=== PATIENT | male | born 1975 | race African-American/Black ===

== ENCOUNTER 2017-07-21 06:13 | Inpatient (IN) | payer OTHER ==
[~2017-07-21] VITALS: Ht 185.4 cm; Wt 86.2 kg
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
[2017-07-21] MEDS ORDERED: ASPIRIN EC 81 MG TABLET.DR PO ONE (06:25)
[2017-07-21] MEDS ORDERED: FURO-144 PO (06:30)
[2017-07-21] MEDS ORDERED: CARV25TA PO (06:30)
[2017-07-21] MEDS ORDERED: ASPI81TA2 PO (06:30)
[2017-07-21] MEDS ORDERED: SPIR25TA4 PO (06:30)
[2017-07-21] MEDS ORDERED: ASPIRIN 81 MG TAB.CHEW PO ONE (06:30)
[2017-07-21 06:38] LABS: BASOPHILS # (AUTO) 0.1 /CMM (0.0-0.2); BASOPHILS % (AUTO) 0.9 % (0.0-2.0); EOSINOPHILS # (AUTO) 0.1 /CMM (0.0-0.7); EOSINOPHILS % (AUTO) 1.4 % (0.0-6.0); HEMATOCRIT 51 % (39-51); LYMPHOCYTES # (AUTO) 1.9 /CMM (0.8-4.8); LYMPHOCYTES % (AUTO) 26.3 % (20.0-44.0); MEAN CORPUSCULAR HEMOGLOBIN 33 PG (26.0-33.0); MEAN CORPUSCULAR HGB CONC 33 g/dl (31.0-36.0); MEAN CORPUSCULAR VOLUME 99 fL (80-96); MONOCYTES # (AUTO) 0.6 /CMM (0.1-1.30); MONOCYTES % (AUTO) 8.5 % (2.0-12.0); NEUTROPHILS # (AUTO) 4.6 /CMM (1.8-8.9); NEUTROPHILS % (AUTO) 62.9 % (43.0-81.0); PLATELET COUNT (AUTO) 176 /CMM (150-450); RDW COEFFICIENT OF VARIATION 15.4 (11.5-15.0); RED BLOOD CELL COUNT(AUTO) 5.21 MIL/uL (4.5-6.0); WHITE BLOOD COUNT (AUTO) 7.3 K/uL (4.3-11.0)
--- NOTE | 2017-07-21 06:40 | NUR ---
RADIOLOGY AT BEDSIDE FOR CXR
[2017-07-21 06:46] LABS: CALCIUM, SERUM 9.2 mg/dL (8.5-10.1); CREATININE 1.2 mg/dL (0.6-1.3); POTASSIUM 3.7 mmol/L (3.5-5.1)
[2017-07-21 06:56] LABS: TROPONIN I 0.042 ng/mL (0.00-0.056)
[2017-07-21 06:59] LABS: INR 1.1 (0.87-1.13); PROTHROMBIN TIME 11.4 SECS (9.5-12.7)
--- NOTE | 2017-07-21 07:05 | NUR ---
PANEL ON-CALL PAGED
--- NOTE | 2017-07-21 07:23 | NUR ---
REPORT GIVEN TO GERARDO BARRERA FOR SAVITA.
--- NOTE | 2017-07-21 08:01 | NUR ---
REPORT GIVEN TO ALVARO CARRILLO FOR TELE ROOM 117.
--- NOTE | 2017-07-21 08:15 | NUR ---
pt admitted from E.R. NO S/S OF DISTRESS BREATHING EVEN AND UNLABORED.ON O2 2L VIA N.C.A/O X3.I.V SITE ON LAC #18 CDI AND PATENT.WILL CONTINUE TO MONITOR FOR CHANGES.SAFETY MEASURES IN PLACE.BED IN LOW AND LOCKED POSITION.ALL NEEDS MET IN A TIMELY MANNER.
[2017-07-21] MEDS ORDERED: MAGNESIUM HYDROXIDE 30 ML UDC PO PRN (08:30)
[2017-07-21] MEDS ORDERED: MAG HYDROX/AL HYDROX/SIMETH 30 ML UDC PO PRN (08:30)
[2017-07-21] MEDS ORDERED: *INSULIN REGULAR(HUMULIN R)HUM 100 UNIT/ML VIAL SQ PRN (08:30)
[2017-07-21] MEDS ORDERED: ZOLPIDEM TARTRATE 5 MG TABLET PO PRN (08:30)
[2017-07-21] MEDS ORDERED: ACETAMINOPHEN 325 MG TABLET PO PRN (08:30)
[2017-07-21] MEDS ORDERED: DEXTROSE 50%-WATER 50 ML DISP.SYRIN IV PRN (08:30)
[2017-07-21] MEDS ORDERED: ONDANSETRON HCL/PF 4 MG/2 ML VIAL IVP PRN (08:30)
[2017-07-21] MEDS ORDERED: HYDROCODONE/APAP 5/325MG 1 EACH TABLET PO PRN (08:30)
[2017-07-21] MEDS ORDERED: Z GUARD REMEDY 2 OZ OINT TP PRN (08:30)
[2017-07-21] MEDS ORDERED: INSULIN REGULAR, HUMAN 100 UNIT/ML 3 ML VIAL SQ PRN (08:30)
[2017-07-21] MEDS ORDERED: ASPIRIN 81 MG TAB.CHEW PO SCH (09:00)
[2017-07-21] MEDS: FUROSEMIDE 40 MG/4 ML VIAL IV SCH ×2 (09:27→21:37)
[2017-07-21] MEDS: ASPIRIN 325 MG TABLET PO SCH (09:27)
[2017-07-21] MEDS: VALSARTAN 80 MG TABLET PO SCH (09:28)
[2017-07-21] MEDS: CARVEDILOL 12.5 MG TABLET PO SCH ×2 (09:28→21:38)
[2017-07-21] MEDS: SPIRONOLACTONE 25 MG TABLET PO SCH ×2 (09:28→16:20)
[2017-07-21] MEDS: ENOXAPARIN SODIUM 40 MG/0.4 ML DISP.SYRIN SQ SCH (09:30)
[2017-07-21] MEDS: hydrALAZINE HCL 50 MG TABLET PO SCH ×3 (09:46→16:19)
[2017-07-21 09:57] LABS: THYROID STIMULATING HORMONE 3.219 uIU/mL (0.358-3.74)
[2017-07-21 10:00] LABS: PHOSPHORUS 4.3 mg/dL (2.5-4.9)
[2017-07-21] MEDS: NITROGLYCERIN PACKET 1 GM PACKET TOP SCH ×3 (11:17→21:38)
[2017-07-21] MEDS: BLOOD SUGAR DIAGNOSTIC 1 EACH STRIP VI SCH ×3 (11:33→21:38)
[2017-07-21 12:00] VITALS: BP 128/78
[2017-07-21 16:00] VITALS: BP 117/80
[2017-07-21] MEDS: ISOSORBIDE DINITRATE (20MG) 20 MG TABLET PO SCH (16:20)
--- NOTE | 2017-07-21 19:10 | NUR ---
RN OPEN NOTES RECEIVED PATIENT AWAKE IN BED. A/O X3. NO SIGNS OF DISTRESS OR DISCOMFORT. BREATHING EVEN AND UNLABORED. ON TELE MONITORING WITH SR 72 NOTED. IV ACCESS IN LAC PATENT AND INTACT, NO SIGNS OF REDNESS OR INFILTRATION. BED IN LOW LOCKED POSITION WITH SIDE RAILS X2. CALL LIGHT WITHIN REACH. WILL CONTINUE TO MONITOR.
[2017-07-21 20:00] VITALS: BP 125/91
--- NOTE | 2017-07-21 23:14 | NUR ---
RN NOTES ADMINISTERED AMBIEN 5MG ORDERED FOR INSOMNIA. WILL CONTINUE TO MONITOR.
[2017-07-22] VITALS: BP 122/79
[2017-07-22] MEDS: NITROGLYCERIN PACKET 1 GM PACKET TOP SCH (06:17)
[2017-07-22] MEDS: BLOOD SUGAR DIAGNOSTIC 1 EACH STRIP VI SCH ×2 (06:24→12:11)
--- NOTE | 2017-07-22 06:46 | NUR ---
RN CLOSING NOTES PATIENT AWAKE IN BED. A/O X3. NO SIGNS OF DISTRESS OR DISCOMFORT. BREATHING EVEN AND UNLABORED. ON TELE MONITORING WITH SR 63 W/ INVERTED QRS NOTED. IV ACCESS IN LAC PATENT AND INTACT, NO SIGNS OF REDNESS OR INFILTRATION. ALL NEEDS MET. NO SIGNIFICANT CHANGES THROUGH THE NIGHT. .BED IN LOW LOCKED POSITION WITH SIDE RAILS X2. CALL LIGHT WITHIN REACH. WILL ENDORSE TO AM SHIFT FOR SAVITA.
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
[2017-07-22 07:57] LABS: BASOPHILS % (AUTO) 0.2 % (0.0-2.0); EOSINOPHILS # (AUTO) 0.1 /CMM (0.0-0.7); EOSINOPHILS % (AUTO) 1.3 % (0.0-6.0); HEMATOCRIT 45 % (39-51); HEMOGLOBIN 14.8 g/dL (13.5-17.5); LYMPHOCYTES # (AUTO) 1.6 /CMM (0.8-4.8); MEAN CORPUSCULAR HEMOGLOBIN 33 PG (26.0-33.0); MEAN CORPUSCULAR HGB CONC 33 g/dl (31.0-36.0); MEAN CORPUSCULAR VOLUME 99 fL (80-96); MONOCYTES # (AUTO) 0.2 /CMM (0.1-1.30); MONOCYTES % (AUTO) 3.6 % (2.0-12.0); NEUTROPHILS # (AUTO) 4.6 /CMM (1.8-8.9); NEUTROPHILS % (AUTO) 69.9 % (43.0-81.0); PLATELET COUNT (AUTO) 159 /CMM (150-450); RDW COEFFICIENT OF VARIATION 15.2 (11.5-15.0); RED BLOOD CELL COUNT(AUTO) 4.54 MIL/uL (4.5-6.0); WHITE BLOOD COUNT (AUTO) 6.6 K/uL (4.3-11.0)
[2017-07-22 08:00] VITALS: BP 142/90
[2017-07-22] MEDS ORDERED: REGADENOSON 0.4 MG/5 ML DISP.SYRIN IVP ONE (08:00)
[2017-07-22 08:18] VITALS: BP 142/90
[2017-07-22 08:29] LABS: ALBUMIN 3.1 g/dL (3.4-5.0); BILIRUBIN,TOTAL 0.5 mg/dL (0.2-1.0); CALCIUM, SERUM 8.4 mg/dL (8.5-10.1); CREATININE 1.1 mg/dL (0.6-1.3); MAGNESIUM 1.8 mg/dL (1.8-2.4); PHOSPHORUS 4.6 mg/dL (2.5-4.9); POTASSIUM 3.4 mmol/L (3.5-5.1); TOTAL PROTEIN, SERUM 6.5 g/dL (6.4-8.2)
[2017-07-22 08:31] LABS: TROPONIN I 0.026 ng/mL (0.00-0.056)
[2017-07-22] MEDS: FUROSEMIDE 40 MG/4 ML VIAL IV SCH (09:43)
[2017-07-22] MEDS: SPIRONOLACTONE 25 MG TABLET PO SCH (09:43)
[2017-07-22] MEDS: hydrALAZINE HCL 50 MG TABLET PO SCH (09:43)
[2017-07-22] MEDS: ISOSORBIDE DINITRATE (20MG) 20 MG TABLET PO SCH (09:44)
[2017-07-22] MEDS: ASPIRIN 325 MG TABLET PO SCH (09:44)
[2017-07-22] MEDS: CARVEDILOL 12.5 MG TABLET PO SCH (09:44)
[2017-07-22] MEDS: VALSARTAN 80 MG TABLET PO SCH (09:44)
[2017-07-22] MEDS: ENOXAPARIN SODIUM 40 MG/0.4 ML DISP.SYRIN SQ SCH (09:45)
[2017-07-22] MEDS ORDERED: POTASSIUM CHLORIDE 20 MEQ TAB.PRT.SR PO SCH ×2 (10:00→11:00)
[2017-07-22] MEDS ORDERED: FUROSEMIDE 40 MG TABLET PO SCH (11:00)
--- NOTE | 2017-07-22 12:00 | NUR ---
RN NOTES PT WANTS TO SEE DR Roberto TERRY REGARDING DISCHARGE HOME , MD NOTIFIED.
[2017-07-22 12:23] VITALS: BP 119/70
[2017-07-22] MEDS ORDERED: hydrALAZINE HCL 50 MG TABLET PO SCH (13:00)
--- NOTE | 2017-07-22 14:44 | NUR ---
Patient lives locally with family. He is ambulatory and independent with adl's. He follow at [facility] for pcp follow up. Plan to return home when discharge. Addendum: 07/22/17 at 1444 by ALEJO MUÑOZ RN Amended: Links added.
[2017-07-22] MEDS ORDERED: HYDR-4077 PO (14:48)
[2017-07-22] MEDS ORDERED: VALS80TA2 PO (14:48)
--- NOTE | 2017-07-22 15:24 | NUR ---
RN NOTES PT STATED WILL MAKE HIS OWN POST ACUTE CARE REGISTERED NURSE DR SHANTI ISSA IN ONE TO TWO WEEKS , AND WITH PCP IN ONE TO TWO WEEKS ALSO , DISCHARGE INSTRUCTION GIVEN , PT VERBALIZES UNDERSTANDING , NO SKIN ISSUE NOTED, H/L DISCONTINUED .
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
--- NOTE | 2017-07-22 15:40 | NUR ---
RN NOTES PT LEFT THE FLOOR TO MAIN ENTRANCE AMBULATORY ACCOMPANIED BY STAFF MEMBERS IN STABLE CONDITION.
== END 2017-07-22 15:37 | disposition home or self-care (01) | DRG 194 ==
LOC: ER 06:17 → TELE1 08:03 → MEDSG1 07-22 10:59
PROVIDERS: ADMIT Internal Medicine; ATTEND Internal Medicine
DX: I11.0 Hypertensive heart disease with heart failure (principal); E11.65 Type 2 diabetes mellitus with hyperglycemia; I24.9 Acute ischemic heart disease, unspecified; I50.23 Acute on chronic systolic (congestive) heart failure; Z79.4 Long term (current) use of insulin; Z79.899 Other long term (current) drug therapy; Z79.82 Long term (current) use of aspirin; F17.200 Nicotine dependence, unspecified, uncomplicated; E66.9 Obesity, unspecified; Z68.25 Body mass index [BMI] 25.0-25.9, adult
CPT/HCPCS: 36415; 71010-TC; 80048-TC; 80053-TC; 80061-TC; 82306; 82962-TC; 83735-TC; 83880; 84100-TC; 84439-TC; 84443-TC; 84484-TC; 85025-TC; 85730-TC; 93307-TC; A4606; A9502; J1650; J1815; J1940; J2785; Z7610

== ENCOUNTER 2017-09-09 05:35 | Emergency (ER) | payer OTHER ==
[~2017-09-09] VITALS: Ht 185.4 cm; Wt 86.2 kg
[~2017-09-09 05:35] MED LIST: ASPI-1169 PO; CARV25TA PO; FURO-144 PO; HYDR-4077 PO; SPIR25TA4 PO; VALS80TA2 PO
[2017-09-09] MEDS ORDERED: LORAZEPAM INJ 2 MG/ML VIAL IV ONE (06:00)
--- NOTE | 2017-09-09 06:27 | NUR ---
MD TUCKERIAN AT BEDSIDE FOR EVAL
--- NOTE | 2017-09-09 06:27 | NUR ---
PT RECEIVED FROM HOME C/O ABDOMINAL PAIN X2 DAYS 8 PAIN TOOK MEDICATION AND REPORTED NOTHING HELPS LESSEN. NO SOB NOTED. VSS. NAD. A/O X4. WILL CONTINUE TO MONITOR FOR ANY CHANGES
--- NOTE | 2017-09-09 07:00 | NUR ---
EKG AT BEDSIDE
[2017-09-09] MEDS ORDERED: METOCLOPRAMIDE HCL 10 MG/2 ML VIAL ONE (07:01)
[2017-09-09] MEDS: IV NS 0.9% 1,000 ML BAG IV ONE (07:02)
[2017-09-09] MEDS ORDERED: FAMOTIDINE/PF INJ 20 MG/2 ML VIAL IV ONE (07:02)
[2017-09-09] MEDS ORDERED: FAMOTIDINE (20 MG) 20 MG TABLET ONE (07:04)
[2017-09-09 07:05] LABS: BASOPHILS % (AUTO) 0.6 % (0.0-2.0); EOSINOPHILS % (AUTO) 0.2 % (0.0-6.0); HEMATOCRIT 45 % (39-51); LYMPHOCYTES # (AUTO) 1.8 /CMM (0.8-4.8); LYMPHOCYTES % (AUTO) 26.5 % (20.0-44.0); MEAN CORPUSCULAR HEMOGLOBIN 33 PG (26.0-33.0); MEAN CORPUSCULAR HGB CONC 33 g/dl (31.0-36.0); MEAN CORPUSCULAR VOLUME 98 fL (80-96); MONOCYTES # (AUTO) 0.8 /CMM (0.1-1.30); MONOCYTES % (AUTO) 11.6 % (2.0-12.0); NEUTROPHILS # (AUTO) 4.1 /CMM (1.8-8.9); NEUTROPHILS % (AUTO) 61.1 % (43.0-81.0); PLATELET COUNT (AUTO) 150 /CMM (150-450); RDW COEFFICIENT OF VARIATION 13.9 (11.5-15.0); RED BLOOD CELL COUNT(AUTO) 4.59 MIL/uL (4.5-6.0); WHITE BLOOD COUNT (AUTO) 6.7 K/uL (4.3-11.0)
[2017-09-09] MEDS: METOCLOPRAMIDE HCL 10 MG/2 ML VIAL IV ONE (07:08)
[2017-09-09] MEDS: FAMOTIDINE (20 MG) 20 MG TABLET PO ONE (07:08)
--- NOTE | 2017-09-09 07:14 | NUR ---
REPORT GIVEN TO RA
--- NOTE | 2017-09-09 07:15 | NUR ---
RECEIVED REPORT FOR SAVITA.
[2017-09-09 07:20] LABS: TROPONIN I 0.036 ng/mL (0.00-0.056)
[2017-09-09 07:21] LABS: ALBUMIN 3.6 g/dL (3.4-5.0); BILIRUBIN,DIRECT 1.1 mg/dL (0.0-0.2); BILIRUBIN,TOTAL 2.5 mg/dL (0.2-1.0); CREATININE 1.2 mg/dL (0.6-1.3); POTASSIUM 4.5 mmol/L (3.5-5.1); TOTAL PROTEIN, SERUM 7.2 g/dL (6.4-8.2)
--- NOTE | 2017-09-09 07:22 | NUR ---
ARMORED VEHICLE OFFICER AT BEDSIDE
[2017-09-09 07:28] LABS: CALCIUM, SERUM 9.1 mg/dL (8.5-10.1)
--- NOTE | 2017-09-09 08:05 | NUR ---
IV removed. Catheter intact and site benign. Pressure and 4x4 applied to site. No bleeding noted.
--- NOTE | 2017-09-09 08:09 | NUR ---
Patient does not wish to proceed with medical care recommended by Dr. Gonzalez. Patient given information related to possible complications, up to and including , which could occur as a result of leaving the hospital at this time. Patient verbalizes understanding of risks involved due to leaving against medical advice. Patient has signed AMA form - witnessed by Yeyo CARRILLO
[2017-09-09 08:10] VITALS: BP 139/88
== END 2017-09-09 08:11 | disposition left against medical advice (07) ==
LOC: ER 05:36
DX: R10.13 Epigastric pain (principal); R11.2 Nausea with vomiting, unspecified; I11.0 Hypertensive heart disease with heart failure; I50.9 Heart failure, unspecified; F17.200 Nicotine dependence, unspecified, uncomplicated; Z53.20 Procedure and treatment not carried out because of patient's decision for unspecified reasons; Z79.82 Long term (current) use of aspirin
CPT/HCPCS: 36415; 71010; 80048; 80076; 83690; 84484; 85025; 93005; 96374; 99285; A4606; J2765; J7030; Z7610; J3490

== ENCOUNTER 2017-11-22 10:55 | Emergency (ER) | payer OTHER ==
[~2017-11-22] VITALS: Ht 185.4 cm; Wt 95.3 kg
[2017-11-22 12:56] LABS: BASOPHILS # (AUTO) 0.1 /CMM (0.0-0.2); BASOPHILS % (AUTO) 1.9 % (0.0-2.0); EOSINOPHILS % (AUTO) 0.7 % (0.0-6.0); HEMATOCRIT 45 % (39-51); LYMPHOCYTES % (AUTO) 38.9 % (20.0-44.0); MEAN CORPUSCULAR HEMOGLOBIN 30 PG (26.0-33.0); MEAN CORPUSCULAR HGB CONC 33 g/dl (31.0-36.0); MEAN CORPUSCULAR VOLUME 89 fL (80-96); MONOCYTES # (AUTO) 0.6 /CMM (0.1-1.30); MONOCYTES % (AUTO) 11.6 % (2.0-12.0); NEUTROPHILS # (AUTO) 2.5 /CMM (1.8-8.9); NEUTROPHILS % (AUTO) 46.9 % (43.0-81.0); PLATELET COUNT (AUTO) 165 /CMM (150-450); RDW COEFFICIENT OF VARIATION 17.3 (11.5-15.0); RED BLOOD CELL COUNT(AUTO) 5.05 MIL/uL (4.5-6.0); WHITE BLOOD COUNT (AUTO) 5.2 K/uL (4.3-11.0)
[2017-11-22] MEDS ORDERED: PANTOPRAZOLE 40 MG VIAL IV ONE (13:00)
[2017-11-22] MEDS ORDERED: IV NS 0.9% 1,000 ML BAG IV ONE (13:00)
[2017-11-22] MEDS ORDERED: ONDANSETRON HCL/PF 4 MG/2 ML VIAL IV ONE (13:00)
[2017-11-22] MEDS ORDERED: ONDANSETRON HCL/PF 4 MG/2 ML VIAL ONE (13:01)
[2017-11-22] MEDS ORDERED: PANTOPRAZOLE 40 MG VIAL ONE (13:01)
[2017-11-22 13:10] LABS: INR 1.18 (0.85-1.15)
[2017-11-22 13:12] LABS: ALBUMIN 3.3 g/dL (3.4-5.0); BILIRUBIN,DIRECT 1.5 mg/dL (0.0-0.2); BILIRUBIN,TOTAL 2.7 mg/dL (0.2-1.0); CREATININE 1.1 mg/dL (0.6-1.3); POTASSIUM 4.2 mmol/L (3.5-5.1); TOTAL PROTEIN, SERUM 7.3 g/dL (6.4-8.2)
[2017-11-22 13:13] LABS: TROPONIN I 0.031 ng/mL (0.00-0.056)
[2017-11-22 13:55] VITALS: BP 138/86
--- NOTE | 2017-11-22 14:10 | NUR ---
IV removed. Catheter intact and site benign. Pressure and 4x4 applied to site. No bleeding noted. Patient discharged to home in stable condition. Written and verbal after care instructions given. Patient verbalizes understanding of instruction.
== END 2017-11-22 14:09 | disposition home or self-care (01) ==
LOC: ER 10:57
DX: R10.13 Epigastric pain (principal); I11.0 Hypertensive heart disease with heart failure; I50.9 Heart failure, unspecified; E11.9 Type 2 diabetes mellitus without complications; F17.200 Nicotine dependence, unspecified, uncomplicated; Z79.82 Long term (current) use of aspirin
CPT/HCPCS: 36415; 71045; 80048; 80076; 83690; 84484; 85025; 85730; 93005; 96361; 96374; 96375; 99285; A4606; C9113; J2405; J7030; Z7610

== ENCOUNTER 2018-01-28 11:06 | Emergency (ER) | payer OTHER ==
[~2018-01-28] VITALS: Ht 185.4 cm; Wt 86.2 kg
[~2018-01-28 11:06] MED LIST changes: -SPIR25TA4 PO; +SPIR25TA6 PO
--- NOTE | 2018-01-28 11:20 | NUR ---
PATIENT TO ED DT NAUSEA AND VOMITTING X 2 DAYS. PATIENT IS AWAKE AND ALERT. APPEARS IN NO DISTRESS. RESPIRAITON EVEN AND UNLABORED. SKIN IS WARM TO TOUCH AND NON DIAPHORETIC. PTIS AFEBRUILE. VSS
[2018-01-28] MEDS ORDERED: FAMOTIDINE/PF INJ 20 MG/2 ML VIAL IV ONE ×2 (12:00→12:01)
[2018-01-28] MEDS ORDERED: ONDANSETRON HCL/PF - ER 4 MG/2 ML VIAL IV ONE (12:00)
[2018-01-28] MEDS ORDERED: IV NS 0.9% 1,000 ML BAG IV ONE (12:00)
[2018-01-28] MEDS ORDERED: ONDANSETRON HCL/PF 4 MG/2 ML VIAL ONE (12:01)
[2018-01-28 12:11] LABS: BASOPHILS # (AUTO) 0.1 /CMM (0.0-0.2); BASOPHILS % (AUTO) 0.9 % (0.0-2.0); EOSINOPHILS % (AUTO) 0.2 % (0.0-6.0); HEMATOCRIT 45 % (39-51); HEMOGLOBIN 14.8 g/dL (13.5-17.5); LYMPHOCYTES # (AUTO) 1.6 /CMM (0.8-4.8); LYMPHOCYTES % (AUTO) 20.7 % (20.0-44.0); MEAN CORPUSCULAR HGB CONC 33 g/dl (31.0-36.0); MEAN CORPUSCULAR VOLUME 88 fL (80-96); MONOCYTES # (AUTO) 0.8 /CMM (0.1-1.30); MONOCYTES % (AUTO) 10.1 % (2.0-12.0); NEUTROPHILS % (AUTO) 68.1 % (43.0-81.0); PLATELET COUNT (AUTO) 172 /CMM (150-450); RDW COEFFICIENT OF VARIATION 23.1 (11.5-15.0); RED BLOOD CELL COUNT(AUTO) 5.12 MIL/uL (4.5-6.0); WHITE BLOOD COUNT (AUTO) 7.5 K/uL (4.3-11.0)
[2018-01-28 12:21] LABS: CALCIUM, SERUM 9.3 mg/dL (8.5-10.1); CREATININE 0.9 mg/dL (0.6-1.3); POTASSIUM 3.9 mmol/L (3.5-5.1)
[2018-01-28 12:27] LABS: ALBUMIN 3.6 g/dL (3.4-5.0); BILIRUBIN,DIRECT 6.7 mg/dL (0.0-0.2); BILIRUBIN,TOTAL 10.3 mg/dL (0.2-1.0); TOTAL PROTEIN, SERUM 7.5 g/dL (6.4-8.2)
--- NOTE | 2018-01-28 13:32 | NUR ---
CALLED ([facility]URE [facility]LARGER), LEFT MESSAGE ON VOICEMAIL.
[2018-01-28 13:44] LABS: INR 1.48 (0.85-1.15)
--- NOTE | 2018-01-28 14:39 | NUR ---
PER MD GASTELUM, PATIENT TO REMAIN NPO
--- NOTE | 2018-01-28 16:40 | NUR ---
CALLED TEQUILA AT [facility], SHE SAID SHE IS STILL WAITING FOR A BED FOR PT AND WILL CALL ME WHEN SHE HAS ONE.
--- NOTE | 2018-01-28 17:52 | NUR ---
CALLED TEQUILA AT [facility], , ON UPDATE ON TRANSFER, SHE SAID THERE IS STILL NO BED BUT THEY SHOULD HAVE A BED WITHIN THE HOUR.
--- NOTE | 2018-01-28 18:50 | NUR ---
RECEIVED CALL FROM TEQUILA AT [facility], PT GOING TO ROOM 628, NUMBER TO GIVE REPORT IS [phone]. ACCEPTED TO [facility] BY .
--- NOTE | 2018-01-28 19:20 | NUR ---
CALLED [facility] FOR TRANSPORT TO [facility], ETA 1 HOUR
--- NOTE | 2018-01-28 20:02 | NUR ---
Patient does not wish to proceed with medical care recommended by ([facility] ). Patient given information related to possible complications, up to and including , which could occur as a result of leaving the hospital at this time. Patient verbalizes understanding of risks involved due to leaving against medical advice. Patient has signed AMA form. made aware. Pt provided with labwork and cd. Pt ambulated with steady gait out of ER.
--- NOTE | 2018-01-28 20:02 | NUR ---
IV removed. Catheter intact and site benign. Pressure and 4x4 applied to site. No bleeding noted.
--- NOTE | 2018-01-28 20:07 | NUR ---
CALLED [facility] TO LET THEM KNOW PT SIGNED AMA.
[2018-01-28 20:10] VITALS: BP 134/87
== END 2018-01-28 20:12 | disposition left against medical advice (07) ==
LOC: ER 11:09
DX: K74.60 Unspecified cirrhosis of liver (principal); F10.10 Alcohol abuse, uncomplicated; F17.200 Nicotine dependence, unspecified, uncomplicated; E11.9 Type 2 diabetes mellitus without complications; I11.0 Hypertensive heart disease with heart failure; I50.9 Heart failure, unspecified; Z79.82 Long term (current) use of aspirin
CPT/HCPCS: 36415; 76705-TC; 80048-TC; 80076-TC; 83690-TC; 85025-TC; 85610-TC; A4606; J2405; J3490; J7030; Z7610

== ENCOUNTER 2018-05-11 10:27 | Emergency (ER) | payer OTHER ==
[~2018-05-11] VITALS: Ht 188 cm; Wt 77.1 kg
[~2018-05-11 10:27] MED LIST changes: -HYDR-4077 PO; -SPIR25TA6 PO; -VALS80TA2 PO
[2018-05-11 10:48] VITALS: BP 113/91
[2018-05-11] MEDS ORDERED: IBUPROFEN 600 MG TABLET PO ONE ×2 (11:30→11:36)
[2018-05-11] MEDS ORDERED: HYDROCODONE/APAP 5/325MG 1 EACH TABLET ONE (11:36)
[2018-05-11] MEDS ORDERED: HYDROCODONE/APAP 5/325MG 1 EACH TABLET PO ONE (12:00)
== END 2018-05-11 13:44 | disposition home or self-care (01) ==
LOC: ER 10:27
DX: M65.221 Calcific tendinitis, right upper arm (principal); M25.521 Pain in right elbow; Z72.0 Tobacco use; I11.0 Hypertensive heart disease with heart failure; I50.9 Heart failure, unspecified; E11.9 Type 2 diabetes mellitus without complications; F10.10 Alcohol abuse, uncomplicated; Y90.9 Presence of alcohol in blood, level not specified; Z79.82 Long term (current) use of aspirin
CPT/HCPCS: 73080; 82962; 99284; A4606; Z7610

== ENCOUNTER 2018-06-14 15:57 | Emergency (ER) | payer OTHER ==
[~2018-06-14] VITALS: Ht 185.4 cm; Wt 82.1 kg
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
--- NOTE | 2018-06-14 16:12 | NUR ---
DR PATEL AT BEDSIDE FOR EVAL.
[2018-06-14 16:23] LABS: BASOPHILS # (AUTO) 0.1 /CMM (0.0-0.2); BASOPHILS % (AUTO) 1.3 % (0.0-2.0); EOSINOPHILS % (AUTO) 0.5 % (0.0-6.0); HEMATOCRIT 46 % (39-51); HEMOGLOBIN 15.2 g/dL (13.5-17.5); LYMPHOCYTES # (AUTO) 1.6 /CMM (0.8-4.8); LYMPHOCYTES % (AUTO) 22.3 % (20.0-44.0); MEAN CORPUSCULAR HGB CONC 33 g/dl (31.0-36.0); MEAN CORPUSCULAR VOLUME 99 fL (80-96); MONOCYTES # (AUTO) 0.7 /CMM (0.1-1.30); MONOCYTES % (AUTO) 10.5 % (2.0-12.0); NEUTROPHILS # (AUTO) 4.7 /CMM (1.8-8.9); NEUTROPHILS % (AUTO) 65.4 % (43.0-81.0); PLATELET COUNT (AUTO) 150 /CMM (150-450); RDW COEFFICIENT OF VARIATION 16.7 (11.5-15.0); WHITE BLOOD COUNT (AUTO) 7.1 K/uL (4.3-11.0)
[2018-06-14 16:32] LABS: CREATININE 0.9 mg/dL (0.6-1.3); POTASSIUM 3.5 mmol/L (3.5-5.1)
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
[2018-06-14] MEDS ORDERED: CT SWABBABLE VALVE TRANS SET 1 EA INFUS.SET MC ONE (16:41)
[2018-06-14] MEDS ORDERED: IOHEXOL-300 100 ML VIAL IV ONE (16:41)
[2018-06-14] MEDS ORDERED: IV NS 0.9% 250 ML IV ONE (16:42)
[2018-06-14 16:46] LABS: INR 1.08 (0.85-1.15)
--- NOTE | 2018-06-14 16:50 | NUR ---
PT TO RADIOLOGY FOR FACIAL CT SCAN W/ CONTRAST VIA WHEELCHAIR.
--- NOTE | 2018-06-14 18:06 | NUR ---
Patient discharged to home in stable condition. Written and verbal after care instructions given. Patient verbalizes understanding of instruction.IV removed. Catheter intact and site benign. Pressure and 4x4 applied to site. No bleeding noted.
[2018-06-14 18:07] VITALS: BP 145/97
== END 2018-06-14 18:07 | disposition home or self-care (01) ==
LOC: ER 15:59
DX: S02.31XA Fracture of orbital floor, right side, initial encounter for closed fracture (principal); S02.2XXA Fracture of nasal bones, initial encounter for closed fracture; M27.2 Inflammatory conditions of jaws; I11.0 Hypertensive heart disease with heart failure; I50.9 Heart failure, unspecified; E11.9 Type 2 diabetes mellitus without complications; F10.10 Alcohol abuse, uncomplicated; F17.200 Nicotine dependence, unspecified, uncomplicated; Y90.9 Presence of alcohol in blood, level not specified; Z79.82 Long term (current) use of aspirin; Y04.2XXA Assault by strike against or bumped into by another person, initial encounter; Y93.89 Activity, other specified; Y92.89 Other specified places as the place of occurrence of the external cause; Y99.8 Other external cause status
CPT/HCPCS: 36415; 70450; 70487; 80048; 85025; 85730; 99285; A4606; J7050; Q9967; Z7610